=== PATIENT | female | born 1990 | race Caucasian/White ===

== ENCOUNTER 2016-11-01 23:23 | Emergency (ER) | payer MEDICAID ==
[2016-11-01 23:46] VITALS: BP 111/65
== END 2016-11-01 23:50 | disposition left against medical advice (07) ==
LOC: ER 23:23
DX: Z53.9 Procedure and treatment not carried out, unspecified reason (principal); R22.1 Localized swelling, mass and lump, neck

== ENCOUNTER 2016-11-19 11:50 | Emergency (ER) | payer MEDICAID | END 2016-11-19 13:13 | disposition left against medical advice (07) | LOC: ER 11:50 | DX: Z53.21 Procedure and treatment not carried out due to patient leaving prior to being seen by health care provider (principal) ==

== ENCOUNTER 2016-11-26 12:35 | Emergency (ER) | payer MEDICAID ==
[2016-11-26 13:08] VITALS: BP 103/65
--- NOTE | 2016-11-26 13:19 | ER Document Report ---
ED Medical Screen (RME) - General Stated Complaint: FLANK PAIN Time seen by provider: 13:18 Mode of Arrival: Ambulatory Information source: Patient Notes: 26-year-old female complaining of bilateral lumbar back pain that radiates into both sacrum since last Sunday. She was told by her primary care doctor that she has small kidney stones in each kidney. The pain has gotten worse. Fever. Vomited yesterday. On Depo without menses. I have greeted and performed a rapid initial assessment of this patient. A comprehensive ED assessment, evaluation of the patient, analysis of test results , and completion of the medical decision making process will be contacted by additional ED providers. TRAVEL OUTSIDE OF THE [place] IN LAST 30 DAYS: No - Related Data Allergies/Adverse Reactions: strawberry [[place]] Allergy (Severe, Verified 11/26/16 13:38) Anaphylaxis levonorgestrel [From Norplant System] Allergy (Verified 11/26/16 13:38) Hives tramadol Allergy (Verified 11/26/16 13:38) Past Medical History - Past Medical History Cardiac Medical History: Denies: Hx Coronary Artery Disease, Hx Peripheral Vascular Disease Pulmonary Medical History: Denies: Hx Asthma Endocrine Medical History: Reports: Hx Hypothyroidism. Denies: Hx Diabetes Mellitus Type 1, Hx Diabetes Mellitus Type 2 Renal/ Medical History: Denies: Hx Peritoneal Dialysis Musculoskeltal Medical History: Reports Hx Arthritis - bilateral hips, Reports Hx Musculoskeletal Deformity, Reports Hx Musculoskeletal Trauma Psychiatric Medical History: Reports: Hx Anxiety Traumatic Medical History: Reports: Hx Fractures - bilateral hips, Hx Spine Fracture Past Surgical History: Reports: Hx Orthopedic Surgery - bilat hip dysplasia, right femur fx - Immunizations Immunizations up to date: Yes Hx Diphtheria, Pertussis, Tetanus Vaccination: Yes - given today Physical Exam - Vital signs Vitals: Temp Pulse Resp BP Pulse Ox 98.2 F 66 18 103/65 99 11/26/16 13:07 11/26/16 13:07 11/26/16 13:07 11/26/16 13:07 11/26/16 13:07 Course - Vital Signs Vital signs: Temp Pulse Resp BP Pulse Ox 98.2 F 66 18 103/65 99 11/26/16 13:07 11/26/16 13:07 11/26/16 13:07 11/26/16 13:07 11/26/16 13:07
[2016-11-26 14:14] LABS: APPEARANCE,URINE HAZY; BILIRUBIN,URINE NEGATIVE (NEGATIVE); GLUCOSE, URINE NEGATIVE (NEGATIVE); KETONES,URINE NEGATIVE (NEGATIVE); LEUKOCYTE ESTERASE,URINE LARGE (NEGATIVE); NITRITE,URINE NEGATIVE (NEGATIVE); PROTEIN,URINE 30 mg/dL (NEGATIVE); UROBILINOGEN,URINE NEGATIVE mg/dL (<2.0)
[2016-11-26 14:15] LABS: URINE SPECIFIC GRAVITY 1.029
[2016-11-26] MEDS ORDERED: HYDROCODONE/ACETAMINOPHEN 5-325 MG TABLET PO ONE (15:51)
[2016-11-26] MEDS ORDERED: CIPROFLOXACIN HCL 500 MG TABLET PO ONE (15:51)
[2016-11-26] MEDS ORDERED: HYDROCODONE/ACETAMINOPHEN 5-325 MG 6 TAB/DSPK PO PRN (15:54)
--- NOTE | 2016-11-26 15:54 | ER Document Report ---
[id number] of Arrival: Ambulatory Notes: The patient is a 26-year-old female who presents with right flank pain for the past day. She is also having dysuria. She says the pain is constant. Denies nausea, vomiting, fevers, headache, rash or abdominal pain. TRAVEL OUTSIDE OF THE [place] IN LAST 30 DAYS: No - Related Data Allergies/Adverse Reactions: strawberry [[place]] Allergy (Severe, Verified 11/26/16 13:38) Anaphylaxis levonorgestrel [From Norplant System] Allergy (Verified 11/26/16 13:38) Hives tramadol Allergy (Verified 11/26/16 13:38) Past Medical History - General Information source: Patient - Social History Smoking Status: Current Every Day Smoker Chew tobacco use (# tins/day): No Frequency of alcohol use: None Drug Abuse: None Family History: Other - adopted Patient has suicidal ideation: No Patient has homicidal ideation: No - Past Medical History Cardiac Medical History: Denies: Hx Coronary Artery Disease, Hx Peripheral Vascular Disease Pulmonary Medical History: Denies: Hx Asthma Endocrine Medical History: Reports: Hx Hypothyroidism. Denies: Hx Diabetes Mellitus Type 1, Hx Diabetes Mellitus Type 2 Renal/ Medical History: Denies: Hx Peritoneal Dialysis Musculoskeltal Medical History: Reports Hx Arthritis - bilateral hips, Reports Hx Musculoskeletal Deformity, Reports Hx Musculoskeletal Trauma Psychiatric Medical History: Reports: Hx Anxiety Traumatic Medical History: Reports: Hx Fractures - bilateral hips, Hx Spine Fracture Past Surgical History: Reports: Hx Orthopedic Surgery - bilat hip dysplasia, right femur fx - Immunizations Immunizations up to date: Yes Hx Diphtheria, Pertussis, Tetanus Vaccination: Yes - given today Hx Pneumococcal Vaccination: 05/10/13 Review of Systems - Review of Systems Notes: REVIEW OF SYSTEMS: CONSTITUTIONAL: -fevers, -chills EENT: -eye pain, -difficulty swallowing, -nasal congestion CARDIOVASCULAR:-chest pain, -syncope. RESPIRATORY: -cough, -SOB GASTROINTESTINAL: -abdominal pain, -nausea, -vomiting, -diarrhea GENITOURINARY: +dysuria, -hematuria MUSCULOSKELETAL: +right flank pain, -neck pain SKIN: -rash or skin lesions. HEMATOLOGIC: -easy bruising or bleeding. LYMPHATIC: -swollen, enlarged glands. NEUROLOGICAL: -altered mental status or loss of consciousness, -headache, - neurologic symptoms PSYCHIATRIC: -anxiety, -depression. ALL OTHER SYSTEMS REVIEWED AND NEGATIVE. Physical Exam - Vital signs Vitals: Temp Pulse Resp BP Pulse Ox 98.2 F 66 18 103/65 99 11/26/16 13:07 11/26/16 13:07 11/26/16 13:07 11/26/16 13:07 11/26/16 13:07 - Notes Notes: PHYSICAL EXAMINATION: GENERAL: Well-appearing, well-nourished and in no acute distress. HEAD: Atraumatic, normocephalic. EYES: Pupils equal round and reactive to light, extraocular movements intact, sclera anicteric, conjunctiva are normal. ENT: nares patent, oropharynx clear without exudates. Moist mucous membranes. NECK: Normal range of motion, supple without lymphadenopathy LUNGS: Breath sounds clear to auscultation bilaterally and equal. No wheezes rales or rhonchi. HEART: Regular rate and rhythm without murmurs ABDOMEN: Soft, nontender, normoactive bowel sounds. No guarding, no rebound. No masses appreciated. +right CVA tenderness EXTREMITIES: Normal range of motion, no pitting or edema. No cyanosis. NEUROLOGICAL: Cranial nerves grossly intact. Normal speech, normal gait. Normal sensory, motor, and reflex exams. PSYCH: Normal mood, normal affect. SKIN: Warm, Dry, normal turgor, no rashes or lesions noted. Course - Re-evaluation Re-evalutation: Patient has evidence of right pyelonephritis on urine and physical exam. She is tolerating fluids. Will treat her with Cipro as an outpatient and given strict return precautions. - Vital Signs Vital signs: Temp Pulse Resp BP Pulse Ox 98.2 F 66 18 103/65 99 11/26/16 13:07 11/26/16 13:07 11/26/16 13:07 11/26/16 13:07 11/26/16 13:07 - Laboratory Laboratory results interpreted by me: 11/26/16 13:45 Urine Protein 30 H Urine Blood SMALL H Ur Leukocyte Esterase LARGE H Discharge - Discharge Clinical Impression: Pyelonephritis Condition: Good Disposition: HOME, SELF-CARE Additional Instructions: PYELONEPHRITIS: Your evaluation shows evidence of pyelonephritis. This is an infection in the kidney. Typical symptoms are fever, pain in the flank, pain on urination, and frequent urination. Many cases of pyelonephritis can be treated at home. Hospital care may be necessary for patients who are very ill, or elderly or . Pyelonephritis is treated with antibiotics. Be sure to take all the medication as prescribed. Drink plenty of liquids (about three quarts per day) . You may take acetaminophen for fever. You should feel significantly improved within two days. You should have a recheck of your urine in about one week to insure that the infection is gone. Return for a re-examination if your symptoms worsen in any way -- such as high fever, shaking chills, severe weakness or dizziness, severe pain, or inability to pass your urine. ANTIBIOTIC THERAPY: You have been given an antibiotic prescription. It's important that you take all the medication, unless instructed otherwise by your physician. Failure to complete the entire course can result in relapse of your condition. Common side effects of antibiotics include nausea, intestinal cramping, or diarrhea. Women may develop vaginal yeast infections, and babies can get yeast (thrush) in the mouth following the use of antibiotics. Contact your physician if you develop significant side effects from this medication. Allergy to this antibiotic can result in hives, wheezing, faintness, or itching. If symptoms of allergy occur, stop the medication and call the doctor. CIPROFLOXACIN: You have been given an antibacterial agent, ciprofloxacin (Cipro). This medicine is not related to the penicillins, sulfas, cephalosporins, or tetracyclines. It is often given to patients who are allergic to these drugs. It has been chosen for you either because other drugs are not appropriate, or because of the nature of your problem. Cipro should not be taken with antacids, as these can decrease its effectiveness. It can be taken without regard to meals. CIPRO SHOULD NOT BE TAKEN BY CHILDREN, NURSING WOMEN, OR WOMEN. Although Cipro is usually well-tolerated, common side effects can include nausea and diarrhea. Contact your doctor if you experience any unusual symptoms while on this medication, such as joint pain or swelling, shortness of breath, wheezing, faintness, or hives. USE OF ACETAMINOPHEN (Tylenol): Acetaminophen may be taken for pain relief or fever control. It's much safer than aspirin, offering a wider range of "safe" dosages. It is safe during . Some brand names are Tylenol, Panadol, Datril, Anacin 3, Tempra, and Liquiprin. Acetaminophen can be repeated every four hours. The following are maximum recommended dosages: >89 pounds or adults 650 mg to 900 mg Acetaminophen can be repeated every four hours. Maximum dose not to exceed 4000 mg a day. ORAL NARCOTIC MEDICATION: You have been given a prescription for pain control. This medication is a narcotic. It's best taken with food, as nausea can result if taken on an empty stomach. Don't operate machinery or drive within six hours of taking this medication. Do not combine this medicine with alcohol, or with any medication which can cause sedation (such as cold tablets or sleeping pills) unless you get permission from the physician. Narcotics tend to cause constipation. If possible, drink plenty of fluids and eat a diet high in fiber and fruits. Please be aware that prescription narcotics also have the potential for abuse. People become addicted to these medications because of the general sense of wellbeing that they induce. This feeling along with a significant reduction in tension, anxiety, and aggression provides a stimulating seductive quality to these drugs. Once your pain is under control, we encourage you to discard your unused narcotics. FOLLOW-UP CARE: If you have been referred to a physician for follow-up care, call the physician s office for an appointment as you were instructed or within the next two days. If you experience worsening or a significant change in your symptoms, notify the physician immediately or return to the Emergency Department at any time for re-evaluation. Prescriptions: Ciprofloxacin HCl [Cipro 500 mg Tablet] 500 mg PO BID #20 tablet Hydrocodone/Acetaminophen [[place] 5-325 mg Tablet] 1 tab PO Q6H PRN #8 tablet PRN Reason:
== END 2016-11-26 16:13 | disposition home or self-care (01) ==
LOC: ER 12:35
DX: N12 Tubulo-interstitial nephritis, not specified as acute or chronic (principal); R10.9 Unspecified abdominal pain; F17.200 Nicotine dependence, unspecified, uncomplicated; E03.9 Hypothyroidism, unspecified
CPT/HCPCS: 99284; 87086; 81025; 81001; J3490

== ENCOUNTER 2016-12-10 10:55 | Emergency (ER) | payer MEDICAID ==
--- NOTE | 2016-12-10 11:02 | ER Document Report ---
ED Medical Screen (RME) - General Stated Complaint: RIGHT PINKY INJURY Time seen by provider: 10:59 Mode of Arrival: Ambulatory Information source: Patient Notes: 26-year-old female presents to ED with a possible paronychia to the right fifth finger. States she woke up with her finger sore 2 days ago. Denies any injury of any kind. [id number] is red with swelling around the nail. States she 's been on Depo 2 months I have greeted and performed a rapid initial assessment of this patient. A comprehensive ED assessment and evaluation of the patient, analysis of test results and completion of medical decision making process will be conducted by an additional ED providers. TRAVEL OUTSIDE OF THE [place] IN LAST 30 DAYS: No - Related Data Allergies/Adverse Reactions: strawberry [[place]] Allergy (Severe, Verified 11/26/16 13:38) Anaphylaxis levonorgestrel [From Norplant System] Allergy (Verified 11/26/16 13:38) Hives tramadol Allergy (Verified 11/26/16 13:38) Past Medical History - Past Medical History Cardiac Medical History: Denies: Hx Coronary Artery Disease, Hx Peripheral Vascular Disease Pulmonary Medical History: Denies: Hx Asthma Endocrine Medical History: Reports: Hx Hypothyroidism. Denies: Hx Diabetes Mellitus Type 1, Hx Diabetes Mellitus Type 2 Renal/ Medical History: Denies: Hx Peritoneal Dialysis Musculoskeltal Medical History: Reports Hx Arthritis - bilateral hips, Reports Hx Musculoskeletal Deformity, Reports Hx Musculoskeletal Trauma Psychiatric Medical History: Reports: Hx Anxiety Traumatic Medical History: Reports: Hx Fractures - bilateral hips, Hx Spine Fracture Past Surgical History: Reports: Hx Orthopedic Surgery - bilat hip dysplasia, right femur fx - Immunizations Immunizations up to date: Yes Hx Diphtheria, Pertussis, Tetanus Vaccination: Yes - given today
[2016-12-10] MEDS ORDERED: HYDROCODONE/ACETAMINOPHEN 5-325 MG TABLET PO ONE (11:47)
--- NOTE | 2016-12-10 11:54 | ER Document Report ---
ED Extremity Problem, Upper - General Chief Complaint: Hand Pain Stated Complaint: RIGHT PINKY INJURY Mode of Arrival: Ambulatory Information source: Patient Notes: 26-year-old female presents to the emergency department complaining of right fifth fingertip pain, swelling, and redness over the last 2 days. Patient reports bites her nails and reports symptoms appeared to begin after she bit off a part of a hangnail. Denies fever or drainage. TRAVEL OUTSIDE OF THE [place] IN LAST 30 DAYS: No - HPI Patient complains to provider of: Pain, Swelling Recent injury: No Quality of pain: Achy, Throbbing Severity of pain: Moderate Pain Level: 3 Similar symptoms previously: Yes Recently seen / treated by doctor: No - Related Data Allergies/Adverse Reactions: strawberry [[place]] Allergy (Severe, Verified 12/10/16 11:02) Anaphylaxis levonorgestrel [From Norplant System] Allergy (Verified 12/10/16 11:02) Hives Sulfa (Sulfonamide Antibiotics) Allergy (Verified 12/10/16 11:02) tramadol Allergy (Verified 12/10/16 11:02) Past Medical History - General Information source: Patient - Social History Smoking Status: Current Every Day Smoker Chew tobacco use (# tins/day): No Frequency of alcohol use: None Drug Abuse: None Lives with: Family Family History: Other - adopted Patient has suicidal ideation: No Patient has homicidal ideation: No - Past Medical History Cardiac Medical History: Denies: Hx Coronary Artery Disease, Hx Peripheral Vascular Disease Pulmonary Medical History: Denies: Hx Asthma Endocrine Medical History: Reports: Hx Hypothyroidism. Denies: Hx Diabetes Mellitus Type 1, Hx Diabetes Mellitus Type 2 Renal/ Medical History: Denies: Hx Peritoneal Dialysis Musculoskeltal Medical History: Reports Hx Arthritis - bilateral hips, Reports Hx Musculoskeletal Deformity, Reports Hx Musculoskeletal Trauma Psychiatric Medical History: Reports: Hx Anxiety Traumatic Medical History: Reports: Hx Fractures - bilateral hips, Hx Spine Fracture Past Surgical History: Reports: Hx Orthopedic Surgery - bilat hip dysplasia, right femur fx - Immunizations Immunizations up to date: Yes Hx Diphtheria, Pertussis, Tetanus Vaccination: Yes - given today Hx Pneumococcal Vaccination: 05/10/13 Review of Systems - Review of Systems Constitutional: No symptoms reported EENT: No symptoms reported Cardiovascular: No symptoms reported Respiratory: No symptoms reported Gastrointestinal: No symptoms reported Genitourinary: No symptoms reported Female Genitourinary: No symptoms reported Musculoskeletal: See HPI Skin: No symptoms reported Hematologic/Lymphatic: No symptoms reported Neurological/Psychological: No symptoms reported -: Yes All other systems reviewed and negative Physical Exam - Vital signs Vitals: Temp Pulse Resp BP Pulse Ox 98.2 F 74 20 113/66 98 12/10/16 11:01 12/10/16 11:01 12/10/16 11:01 12/10/16 11:01 12/10/16 11:01 Interpretation: Normal - General General appearance: Appears well, Alert In distress: None - HEENT Head: Normocephalic, Atraumatic Eyes: Normal Pupils: PERRL - Respiratory Respiratory status: No respiratory distress Chest status: Nontender Breath sounds: Normal Chest palpation: Normal - Cardiovascular Rhythm: Regular Heart sounds: Normal auscultation Murmur: No Pulses: Normal: Radial Normal capillary refill: Yes - Abdominal Inspection: Normal Distension: No distension Bowel sounds: Normal Tenderness: Nontender Organomegaly: No organomegaly - Extremities General upper extremity: Normal inspection, Nontender, Normal color, Normal ROM , Normal strength, Normal temperature. No: Tender, Edema General lower extremity: Normal inspection, Normal color, Normal ROM, Normal strength, Normal weight bearing Hand: Tender - Tenderness to the distal tip of right fifth finger. Mild localized swelling and erythema without fluctuance or suggestion of abscess at this time. Nail intact. motor and neurovascular function intact.. No: Nail injury - Neurological Neuro grossly intact: Yes Cognition: Normal Orientation: AAOx4 [place] Coma Scale Eye Opening: Spontaneous [place] Coma Scale Verbal: Oriented [place] Coma Scale Motor: Obeys Commands [place] Coma Scale Total: 15 Speech: Normal Motor strength normal: LUE, RUE, LLE, RLE Sensory: Normal - Psychological Associated symptoms: Normal affect, Normal mood - Skin Skin Temperature: Warm Skin Moisture: Dry Skin Color: Normal Course - Re-evaluation Re-evalutation: 12/10/16 12:10 Patient hemodynamically stable, in no distress, afebrile. Physical exam findings suggestive of uncomplicated paronychia with no abscess, felon, or other indication for I&D at this time. Will prescribe course of cephalexin and discussed at length home care including warm soaks and elevation. Patient appears stable for discharge and agrees with home care, follow-up with PCP, and ED return precautions. - Vital Signs Vital signs: Temp Pulse Resp BP Pulse Ox 98.7 F 85 16 115/51 L 99 12/10/16 12:07 12/10/16 12:07 12/10/16 12:07 12/10/16 12:07 12/10/16 12:07 Discharge - Discharge Clinical Impression: Paronychia Qualifiers: Laterality: right Qualified Code(s): L03.011 - Cellulitis of right finger Condition: Stable Disposition: HOME, SELF-CARE Instructions: Paronychia ([facility]), Elevation & Warmth ([facility]), Acetaminophen, Anti- Inflammatory Medication ([facility]), Cephalexin ([facility]), Antibiotic Therapy ([facility]) Additional Instructions: Home Self-Care: -Stop biting nails -Elevation -Warm water soaks twice daily 5-10 mins x 5-7 days -Use Half-strength hydrogen peroxide OR Dilute povidone solution 1 tsp/gallon water -Keep area clean and dry Follow-up with your primary care provider in 1-2 days. Return to the Emergency Department for any worsening symptoms or concerns. Prescriptions: Cephalexin Monohydrate [Keflex 500 mg Capsule] 500 mg PO Q6H 7 Days Naproxen [Naprosyn 375 Mg Tablet] 375 mg PO BIDP PRN #10 tablet PRN Reason: Referrals: PEPE ANN MD [Primary Care Provider] - Follow up tomorrow
[2016-12-10 12:09] VITALS: BP 115/51
== END 2016-12-10 12:32 | disposition home or self-care (01) ==
LOC: ER 10:55
DX: L03.011 Cellulitis of right finger (principal); M79.641 Pain in right hand; F17.200 Nicotine dependence, unspecified, uncomplicated; E03.9 Hypothyroidism, unspecified; Z88.2 Allergy status to sulfonamides; Z91.018 Allergy to other foods
CPT/HCPCS: 99283

== ENCOUNTER 2017-01-10 11:49 | Emergency (ER) | payer MEDICAID ==
--- NOTE | 2017-01-10 11:58 | ER Document Report ---
ED Medical Screen (RME) - General TRAVEL OUTSIDE OF THE [place] IN LAST 30 DAYS: No - General Stated Complaint: TOOTH PAIN Notes: 26 yo female c/o dental pain. had left upper tooth pulled today. dentist would not give pain med Dr Mccarty. no bleeding from extraction site (GUILLERMO PEREZ) - Related Data Allergies/Adverse Reactions: strawberry [[place]] Allergy (Severe, Verified 01/10/17 11:55) Anaphylaxis levonorgestrel [From Norplant System] Allergy (Verified 01/10/17 11:55) Hives Sulfa (Sulfonamide Antibiotics) Allergy (Verified 01/10/17 11:55) tramadol Allergy (Verified 01/10/17 11:55) Past Medical History - Past Medical History Cardiac Medical History: Denies: Hx Coronary Artery Disease, Hx Peripheral Vascular Disease Pulmonary Medical History: Denies: Hx Asthma Endocrine Medical History: Reports: Hx Hypothyroidism. Denies: Hx Diabetes Mellitus Type 1, Hx Diabetes Mellitus Type 2 Renal/ Medical History: Denies: Hx Peritoneal Dialysis Musculoskeltal Medical History: Reports Hx Arthritis - bilateral hips, Reports Hx Musculoskeletal Deformity, Reports Hx Musculoskeletal Trauma Psychiatric Medical History: Reports: Hx Anxiety Traumatic Medical History: Reports: Hx Fractures - bilateral hips, Hx Spine Fracture Past Surgical History: Reports: Hx Orthopedic Surgery - bilat hip dysplasia, right femur fx - Immunizations Immunizations up to date: Yes Hx Diphtheria, Pertussis, Tetanus Vaccination: Yes - given today Doctor's Discharge - Discharge Clinical Impression: dental extraction pain Condition: Good Disposition: HOME, SELF-CARE Additional Instructions: You were seen today for pain in the site of her recent dental extraction. He states you have smoked since the extraction which is probably removed the clot from the nerve and of left the nerve exposed. Please keep the [address] over the dental extraction site to reform the clot. You will be given a 6 pack of you can take one every 6 hours for pain I cannot give you any more narcotics than this so please make them last until you can get back to the dentist and get more pain medicine. The other option is to follow-up with your primary doctor to get pain medicine. Acetaminophen Acetaminophen may be taken for pain relief or fever control. It's much safer than aspirin, offering a wider range of "safe" dosages. It is safe during . Some brand names are Tylenol, Panadol, Datril, Anacin 3, Tempra, and Liquiprin. Acetaminophen can be repeated every four hours. The following are maximum recommended dosages: WEIGHT Dose Drops Elixir Chewable( 80mg) (LBS.) drprs=droppers tsp=teaspoon 6 40 mg .4 ml (1/2) 6-11 80 mg .8 ml (full) 1/2 tsp 1 tab 12-16 120 mg 1 1/2 drprs 3/4 tsp 1 1/2 tabs 17-23 160 mg 2 drprs 1 tsp 2 tabs 24-30 240 mg 3 drprs 1 1/2 tsp 3 tabs 30-35 320 mg 2 tsp 4 tabs 36-41 360 mg 2 1/4 tsp 4 1 /2 tabs 42-47 400 mg 2 1/2 tsp 5 tabs 48-53 480 mg 3 tsp 6 tabs 54-59 520 mg 3 1/4 tsp 6 1 /2 tabs 60-64 560 mg 3 1/2 tsp 7 tabs 65-70 600 mg 3 3/4 tsp 7 1 /2 tabs 71-76 640 mg 4 tsp 8 tabs 77-82 720 mg 4 1/2 tsp 9 tabs 83-88 800 mg 5 tsp 10 tabs >89 pounds or adults 650 mg to 900 mg Acetaminophen can be repeated every four hours. Maximum daily dose not to exceed 4000 mg. These maximum recommended dosages are slightly higher than the dosages written on the product container, but these dosages are very safe and well below the toxic dosage for acetaminophen. Chronic Pain Control Stress, inactivity, and depression make pain more severe regardless of the cause of the pain. Stress and poor physical condition can cause pain such as headaches and backache. Relaxation: Rest in a quiet place with your eyes closed for 20 minutes twice daily. Concentrate on a pleasant image, or simply "feel" your breathing. Clear your mind. Stress management: Deal with your "stressors." Either take action, or eliminate the stressor from your life. Don't let things hang over you. Accept those things you can't change. Nutrition: Eat small, balanced meals -- don't skip, don't overeat. Meals should be high-carbohydrate, low-sugar, low-fat. Exercise: Exercise helps painful conditions and eases stress. Get 30 minutes of moderate exercise, five days a week. Do an activity that does not flare your pain. Precautions: Pain which continues to disrupt daily activities, or which changes in nature, requires a medical evaluation. Pain Clinic referral is available. We do not manage chronic pain in the Emergency Department. We will try to appropriately help you through an acute flare of your chronic painful condition , but for on-going chronic pain that does not improve, you will need to see your private doctor or [facility]. We do not provide repeated medication management of chronic painful conditions. If you wish, we can provide the name of local pain management physicians. FOLLOW-UP CARE: If you have been referred to a physician for follow-up care, call the physician s office for an appointment as you were instructed or within the next two days. If you experience worsening or a significant change in your symptoms, notify the physician immediately or return to the Emergency Department at any time for re-evaluation. Forms: Smoking Cessation Education
[2017-01-10] MEDS ORDERED: HYDROCODONE/ACETAMINOPHEN 5-325 MG 6 TAB/DSPK PO PRN (13:47)
--- NOTE | 2017-01-10 13:51 | ER Document Report ---
ED Oral Problem - General Chief Complaint: Toothache Stated Complaint: TOOTH PAIN Time seen by provider: 13:45 Mode of Arrival: Ambulatory Information source: Patient Notes: 26-year-old female presents to ED for a dental pain in the where the left upper tooth was pulled. Patient states that the dentist would not give her any pain medication. She states she smoked one cigarette after that it dental removal and now she is having pain through her jaw up to her ear. She is having very minimal bleeding from the site a told her to please press a 2 x 2 into the area to reform the blood clot over the root. TRAVEL OUTSIDE OF THE [place] IN LAST 30 DAYS: No - HPI Patient complains to provider of: Toothache Onset: This morning Onset: Gradual Quality of pain: Sharp, Throbbing Severity: Moderate Pain Level: 4 Context: Recent dental extractions Associated symptoms: Other - Pain at the site of dental extraction Worsened by: Cold Similar symptoms previously: Yes Recently seen / treated by doctor/dentist: Yes - Related Data Allergies/Adverse Reactions: strawberry [[place]] Allergy (Severe, Verified 01/10/17 11:55) Anaphylaxis levonorgestrel [From Norplant System] Allergy (Verified 01/10/17 11:55) Hives Sulfa (Sulfonamide Antibiotics) Allergy (Verified 01/10/17 11:55) tramadol Allergy (Verified 01/10/17 11:55) Past Medical History - General Information source: Patient - Social History Smoking Status: Current Every Day Smoker Cigarette use (# per day): Yes - half pack a day Chew tobacco use (# tins/day): No Smoking Education Provided: Yes Frequency of alcohol use: None Drug Abuse: None Occupation: no Lives with: Friend Family History: Other - adopted Patient has suicidal ideation: No Patient has homicidal ideation: No - Past Medical History Cardiac Medical History: Reports: None Pulmonary Medical History: Reports: None EENT Medical History: Reports: None Neurological Medical History: Reports: None Endocrine Medical History: Reports: Hx Hypothyroidism Renal/ Medical History: Reports: None Malignancy Medical History: Reports: None GI Medical History: Reports: None Musculoskeltal Medical History: Reports Hx Arthritis - bilateral hips, Reports Hx Musculoskeletal Deformity, Reports Hx Musculoskeletal Trauma Skin Medical History: Reports None Psychiatric Medical History: Reports: Hx Anxiety Traumatic Medical History: Reports: Hx Fractures - bilateral hips Infectious Medical History: Reports: None Past Surgical History: Reports: Hx Orthopedic Surgery - bilat hip dysplasia, right femur fx - Immunizations Immunizations up to date: Yes Hx Diphtheria, Pertussis, Tetanus Vaccination: Yes - given today Hx Pneumococcal Vaccination: 05/10/13 Review of Systems - Review of Systems Constitutional: No symptoms reported EENT: Dental problem - Pain at the site of recent dental extraction Cardiovascular: No symptoms reported Respiratory: No symptoms reported Gastrointestinal: No symptoms reported Genitourinary: No symptoms reported Female Genitourinary: No symptoms reported Musculoskeletal: No symptoms reported Skin: No symptoms reported Hematologic/Lymphatic: No symptoms reported Neurological/Psychological: No symptoms reported Physical Exam - Vital signs Vitals: Temp Pulse Resp BP Pulse Ox 98.9 F 57 L 16 113/75 100 01/10/17 11:54 01/10/17 11:54 01/10/17 11:54 01/10/17 11:54 01/10/17 11:54 Interpretation: Normal - General General appearance: Appears well, Alert - HEENT Head: Normocephalic, Atraumatic Eyes: Normal Pupils: PERRL Ears: Normal External canal: Normal Tympanic membrane: Normal Sinus: Normal Nasal: Normal Mouth/Lips: Normal Teeth diagram: 1 - Pain is site of left dental extraction it was pulled today Pharynx: Normal Neck: Normal - Respiratory Respiratory status: No respiratory distress Chest status: Nontender Breath sounds: Normal Chest palpation: Normal - Cardiovascular Rhythm: Regular Heart sounds: Normal auscultation Murmur: No - Abdominal Inspection: Normal Distension: No distension Bowel sounds: Normal Tenderness: Nontender Organomegaly: No organomegaly - Back Back: Normal, Nontender - Extremities General upper extremity: Normal inspection, Nontender, Normal color, Normal ROM , Normal temperature General lower extremity: Normal inspection, Nontender, Normal color, Normal ROM , Normal temperature, Normal weight bearing. No: Jose's sign - Neurological Neuro grossly intact: Yes Cognition: Normal Orientation: AAOx4 Mangum Coma Scale Eye Opening: Spontaneous Paula Coma Scale Verbal: Oriented Paula Coma Scale Motor: Obeys Commands Mangum Coma Scale Total: 15 Speech: Normal Motor strength normal: LUE, RUE, LLE, RLE Sensory: Normal - Psychological Associated symptoms: Normal affect, Normal mood - Skin Skin Temperature: Warm Skin Moisture: Dry Skin Color: Normal Course - Vital Signs Vital signs: Temp Pulse Resp BP Pulse Ox 98.9 F 57 L 16 113/75 100 01/10/17 11:54 01/10/17 11:54 01/10/17 11:54 01/10/17 11:54 01/10/17 11:54 Discharge - Discharge Clinical Impression: dental extraction pain Condition: Good Disposition: HOME, SELF-CARE Additional Instructions: You were seen today for pain in the site of her recent dental extraction. He states you have smoked since the extraction which is probably removed the clot from the nerve and of left the nerve exposed. Please keep the [address] over the dental extraction site to reform the clot. You will be given a 6 pack of you can take one every 6 hours for pain I cannot give you any more narcotics than this so please make them last until you can get back to the dentist and get more pain medicine. The other option is to follow-up with your primary doctor to get pain medicine. Acetaminophen Acetaminophen may be taken for pain relief or fever control. It's much safer than aspirin, offering a wider range of "safe" dosages. It is safe during . Some brand names are Tylenol, Panadol, Datril, Anacin 3, Tempra, and Liquiprin. Acetaminophen can be repeated every four hours. The following are maximum recommended dosages: WEIGHT Dose Drops Elixir Chewable( 80mg) (LBS.) drprs=droppers tsp=teaspoon 6 40 mg .4 ml (1/2) 6-11 80 mg .8 ml (full) 1/2 tsp 1 tab 12-16 120 mg 1 1/2 drprs 3/4 tsp 1 1/2 tabs 17-23 160 mg 2 drprs 1 tsp 2 tabs 24-30 240 mg 3 drprs 1 1/2 tsp 3 tabs 30-35 320 mg 2 tsp 4 tabs 36-41 360 mg 2 1/4 tsp 4 1 /2 tabs 42-47 400 mg 2 1/2 tsp 5 tabs 48-53 480 mg 3 tsp 6 tabs 54-59 520 mg 3 1/4 tsp 6 1 /2 tabs 60-64 560 mg 3 1/2 tsp 7 tabs 65-70 600 mg 3 3/4 tsp 7 1 /2 tabs 71-76 640 mg 4 tsp 8 tabs 77-82 720 mg 4 1/2 tsp 9 tabs 83-88 800 mg 5 tsp 10 tabs >89 pounds or adults 650 mg to 900 mg Acetaminophen can be repeated every four hours. Maximum daily dose not to exceed 4000 mg. These maximum recommended dosages are slightly higher than the dosages written on the product container, but these dosages are very safe and well below the toxic dosage for acetaminophen. Chronic Pain Control Stress, inactivity, and depression make pain more severe regardless of the cause of the pain. Stress and poor physical condition can cause pain such as headaches and backache. Relaxation: Rest in a quiet place with your eyes closed for 20 minutes twice daily. Concentrate on a pleasant image, or simply "feel" your breathing. Clear your mind. Stress management: Deal with your "stressors." Either take action, or eliminate the stressor from your life. Don't let things hang over you. Accept those things you can't change. Nutrition: Eat small, balanced meals -- don't skip, don't overeat. Meals should be high-carbohydrate, low-sugar, low-fat. Exercise: Exercise helps painful conditions and eases stress. Get 30 minutes of moderate exercise, five days a week. Do an activity that does not flare your pain. Precautions: Pain which continues to disrupt daily activities, or which changes in nature, requires a medical evaluation. Pain Clinic referral is available. We do not manage chronic pain in the Emergency Department. We will try to appropriately help you through an acute flare of your chronic painful condition , but for on-going chronic pain that does not improve, you will need to see your private doctor or painter supervisor. We do not provide repeated medication management of chronic painful conditions. If you wish, we can provide the name of local pain management physicians. FOLLOW-UP CARE: If you have been referred to a physician for follow-up care, call the physician s office for an appointment as you were instructed or within the next two days. If you experience worsening or a significant change in your symptoms, notify the physician immediately or return to the Emergency Department at any time for re-evaluation. Forms: Smoking Cessation Education
[2017-01-10 13:52] VITALS: BP 113/75
== END 2017-01-10 14:00 | disposition home or self-care (01) ==
LOC: ER 11:49
DX: K08.89 Other specified disorders of teeth and supporting structures (principal); F17.210 Nicotine dependence, cigarettes, uncomplicated
CPT/HCPCS: 99282

== ENCOUNTER 2017-03-14 10:29 | Emergency (ER) | payer MEDICAID ==
[2017-03-14 10:36] VITALS: BP 112/73
--- NOTE | 2017-03-14 11:14 | ER Document Report ---
ED Extremity Problem, Lower - General Chief Complaint: Skin Problem Stated Complaint: POSSIBLE ALLERGIC REACTION Time Seen by Provider: 03/14/17 10:43 Mode of Arrival: Ambulatory - She is with crutches Information source: Patient Notes: 26-year-old female presents to ED for a reaction to the surgical dressing from a hip replacement surgery. She states she called her orthopedic surgeon and they told her to come to the emergency room and have the dressing changed. TRAVEL OUTSIDE OF THE [place] IN LAST 30 DAYS: No - HPI Patient complains to provider of: Other - itching to surgical site where dressing reacted to skin Location: Thigh Occurred: Last week Where: Other - surgical site Onset/Duration: Gradual Quality of pain: Other - itching not pain to this site but has pain to surgical site from hip replacement Severity: Severe Pain Level: 5 Context: Other - red rash to right hip and thigh Recent injury: No Associated symptoms: Painful ambulation Exacerbated by: Movement, Walking Relieved by: Nothing - Related Data Allergies/Adverse Reactions: strawberry [[place]] Allergy (Severe, Verified 01/10/17 11:55) Anaphylaxis levonorgestrel [From Norplant System] Allergy (Verified 01/10/17 11:55) Hives Sulfa (Sulfonamide Antibiotics) Allergy (Verified 01/10/17 11:55) tramadol Allergy (Verified 01/10/17 11:55) Past Medical History - General Information source: Patient - Social History Smoking Status: Current Every Day Smoker Cigarette use (# per day): Yes - Half pack a day Chew tobacco use (# tins/day): No Smoking Education Provided: Yes - Less than 2 minutes Frequency of alcohol use: None Drug Abuse: None Lives with: Spouse/Significant other Family History: Other - adopted Patient has suicidal ideation: No Patient has homicidal ideation: No - Past Medical History Cardiac Medical History: Reports: None Pulmonary Medical History: Reports: None EENT Medical History: Reports: None Neurological Medical History: Reports: None Endocrine Medical History: Reports: Hx Hypothyroidism Renal/ Medical History: Reports: None Malignancy Medical History: Reports: None GI Medical History: Reports: None Musculoskeltal Medical History: Reports Hx Arthritis - bilateral hips, Reports Hx Musculoskeletal Deformity - Hip dysplasia at , Reports Hx Musculoskeletal Trauma - Fractured right femur Skin Medical History: Reports None Psychiatric Medical History: Reports: Hx Anxiety Traumatic Medical History: Reports: Hx Fractures - bilateral hips, Hx Spine Fracture Infectious Medical History: Reports: None Past Surgical History: Reports: Hx Orthopedic Surgery - bilat hip dysplasia, right femur fx 4 surgeries on right 3 surgeries on lef - Immunizations Immunizations up to date: Yes Hx Diphtheria, Pertussis, Tetanus Vaccination: Yes - given today Hx Pneumococcal Vaccination: 05/10/13 Review of Systems - Review of Systems Constitutional: No symptoms reported EENT: No symptoms reported Cardiovascular: No symptoms reported Respiratory: No symptoms reported Gastrointestinal: No symptoms reported Genitourinary: No symptoms reported Female Genitourinary: No symptoms reported Musculoskeletal: No symptoms reported Skin: Rash - Mid back and right hip under dressing Hematologic/Lymphatic: No symptoms reported Neurological/Psychological: No symptoms reported Physical Exam - Vital signs Vitals: Temp Pulse Resp BP Pulse Ox 98.1 F 64 18 112/73 100 03/14/17 10:34 03/14/17 10:34 03/14/17 10:34 03/14/17 10:34 03/14/17 10:34 Interpretation: Normal - General General appearance: Appears well, Alert - HEENT Head: Normocephalic, Atraumatic Eyes: Normal Pupils: PERRL - Respiratory Respiratory status: No respiratory distress Chest status: Nontender Breath sounds: Normal Chest palpation: Normal - Cardiovascular Rhythm: Regular Heart sounds: Normal auscultation Murmur: No - Abdominal Inspection: Normal Distension: No distension Bowel sounds: Normal Tenderness: Nontender Organomegaly: No organomegaly - Back Back: Normal, Nontender - Extremities General upper extremity: Normal inspection, Nontender, Normal color, Normal ROM , Normal temperature General lower extremity: Normal inspection, Nontender, Normal color, Normal ROM , Normal temperature, Normal weight bearing. No: Jose's sign - Neurological Neuro grossly intact: Yes Cognition: Normal Orientation: AAOx4 Sherrill Coma Scale Eye Opening: Spontaneous Paula Coma Scale Verbal: Oriented Sherrill Coma Scale Motor: Obeys Commands Sherrill Coma Scale Total: 15 Speech: Normal Motor strength normal: LUE, RUE, LLE, RLE Sensory: Normal - Psychological Associated symptoms: Normal affect, Normal mood - Skin Skin Temperature: Warm Skin Moisture: Dry Skin Color: Normal Skin irregularity: Rash - Plan red rash to back appears to be a heat rash or a contact dermatitis. The rash to the right hip is allergic reaction to the dressing from surgery. Course - Re-evaluation Re-evalutation: 03/14/17 11:51 Surgical dressing removed site cleaned well with surgical scrub and saline Telfa dressing covered by ABD pad and tape. Patient to follow-up with surgeon on Sunday as scheduled. Patient recommended to take Benadryl for her rash. - Vital Signs Vital signs: Temp Pulse Resp BP Pulse Ox 98.1 F 64 18 112/73 100 03/14/17 10:34 03/14/17 10:34 03/14/17 10:34 03/14/17 10:34 03/14/17 10:34 Discharge - Discharge Clinical Impression: Skin reaction to surgical dressing, Allergic rash to back Condition: Stable Disposition: HOME, SELF-CARE Additional Instructions: Is seen today for a skin reaction to your surgical dressing on your right hip. The dressing was removed the area was cleaned with surgical scrub and saline. Dressings were applied covered by an ABD pad and nonallergic tape You will need to take Benadryl for the itching and follow-up with your orthopedic surgeon on Sunday as scheduled Did not change the dressing again until you are seen by the orthopedic surgeon on Sunday reinforced the tape if necessary try not to get the dressing wet. USE OF DIPHENHYDRAMINE: The use of diphenhydramine (Benadryl) has been recommended to control allergic symptoms. The 25 mg strength is available over- the-counter, as well as the elixir. This antihistamine is used for many symptoms. It's useful for itching, watering eyes and nose, allergic swelling, hives, and insect stings. The medication can be repeated four times daily. Age Elixir (12.5 mg/tsp) 25 mg pill 2-3 yr 1/2 tsp 4-8 yr 1 tsp 9-14 yr 2 tsp one tab adult 1-2 tabs Antihistamines may cause drowsiness, especially with the first dose. Do not operate machinery or drive while under the effects of the medication. Do not combine the medication with alcohol, or with any other medication without talking to your doctor. FOLLOW-UP CARE: If you have been referred to a physician for follow-up care, call the physician s office for an appointment as you were instructed or within the next two days. If you experience worsening or a significant change in your symptoms, notify the physician immediately or return to the Emergency Department at any time for re-evaluation. Forms: Smoking Cessation Education Referrals: LAURA HALEY MD [Primary Care Provider] - Follow up as needed
== END 2017-03-14 11:24 | disposition home or self-care (01) ==
LOC: ER 10:29
DX: L23.3 Allergic contact dermatitis due to drugs in contact with skin (principal); T50.995A Adverse effect of other drugs, medicaments and biological substances, initial encounter; F17.210 Nicotine dependence, cigarettes, uncomplicated; Z71.6 Tobacco abuse counseling; Z88.8 Allergy status to other drugs, medicaments and biological substances; Z87.892 Personal history of anaphylaxis; Z91.018 Allergy to other foods; Z88.2 Allergy status to sulfonamides
CPT/HCPCS: 99283

== ENCOUNTER 2017-04-24 19:06 | Emergency (ER) | payer MEDICAID ==
--- NOTE | 2017-04-24 19:56 | ER Document Report ---
HPI - HPI Patient complains to provider of: eyelid problem Onset: Yesterday Onset/Duration: Worse Quality of pain: Burning Pain Level: 4 Context: Pt states that she was doing a lot of crying 2 days ago and started to have some eye irritation. Patient states that she had crying about 9 hours as she had had her right hip dislocate and then she had to get it manipulated back into position. Patient states that she was frequently rubbing her eyes due to crying. Patient states yesterday she noticed that her eyelids started to become tender, red and swollen. Patient denies any contact lens use or glasses. Patient states that her vision is only slightly blurred but she attributes this to the swelling of her eyelids. Reports skin rash to her upper extremities but attributes this to possible tape exposure from recent IV sites. Associated Symptoms: Other - eyelid swelling Exacerbated by: Denies Relieved by: Denies Similar symptoms previously: No Recently seen / treated by doctor: Yes - ROS ROS below otherwise negative: Yes Systems Reviewed and Negative: Yes All other systems reviewed and negative - CONSTITUTIONAL Constitutional: DENIES: Fever - EENT EENT: REPORTS: Eye problems - REPRODUCTIVE Reproductive: DENIES: : - DERM Skin Color: Normal Skin Problems: Rash Past Medical History - General Information source: Patient - Social History Smoking Status: Current Every Day Smoker Frequency of alcohol use: None Drug Abuse: None Occupation: none Lives with: Family Family History: Reviewed & Not Pertinent, Other - adopted Patient has suicidal ideation: No Patient has homicidal ideation: No - Past Medical History Cardiac Medical History: Reports: Other - tachycardia Denies: Hx Coronary Artery Disease, Hx Peripheral Vascular Disease Pulmonary Medical History: Denies: Hx Asthma Endocrine Medical History: Reports: Hx Hypothyroidism. Denies: Hx Diabetes Mellitus Type 1, Hx Diabetes Mellitus Type 2 Renal/ Medical History: Denies: Hx Peritoneal Dialysis Musculoskeltal Medical History: Reports Hx Arthritis - bilateral hips, Reports Hx Musculoskeletal Deformity - Hip dysplasia at , Reports Hx Musculoskeletal Trauma - Fractured right femur Psychiatric Medical History: Reports: Hx Anxiety Traumatic Medical History: Reports: Hx Fractures - bilateral hips, Hx Spine Fracture Past Surgical History: Reports: Hx Orthopedic Surgery - bilat hip dysplasia, right femur fx 4 surgeries on right 3 surgeries on lef - Immunizations Immunizations up to date: Yes Hx Diphtheria, Pertussis, Tetanus Vaccination: Yes - given today Hx Pneumococcal Vaccination: 05/10/13 Vertical Provider Document - CONSTITUTIONAL Agree With Documented VS: Yes Exam Limitations: No Limitations General Appearance: WD/WN, No Apparent Distress - INFECTION CONTROL TRAVEL OUTSIDE OF THE [place] IN LAST 30 DAYS: No - HEENT HEENT: Atraumatic, Normocephalic, PERRLA Notes: No corneal abrasion, ulcer, foreign body, or dendrite. Conjunctivae clear bilaterally, extraocular movements intact - NECK Neck: Normal Inspection, Supple - RESPIRATORY Respiratory: Breath Sounds Normal, No Respiratory Distress O2 Sat by Pulse Oximetry: 97 - CARDIOVASCULAR Cardiovascular: Regular Rate, Regular Rhythm - MUSCULOSKELETAL/EXTREMETIES Musculoskeletal/Extremeties: MAEW - NEURO Level of Consciousness: Awake, Alert, Appropriate Motor/Sensory: No Motor Deficit - DERM Integumentary: Warm, Dry, Rash - pt with maculopapular rash periorbital area bilaterally, and in patches to left extremity and right hip Course - Vital Signs Vital signs: Temp Pulse Resp BP Pulse Ox 98.4 F 18 109/73 97 04/24/17 19:19 04/24/17 19:19 04/24/17 19:19 04/24/17 19:19 Discharge - Discharge Clinical Impression: Dermatitis, Periorbital swelling Condition: Stable Disposition: HOME, SELF-CARE Instructions: Antibiotic Therapy ([facility]), Corticosteroid Medication ([facility]), Steroid Medication, Use of Diphenhydramine Additional Instructions: Return immediately for any new or worsening symptoms Followup with your primary care provider, call tomorrow to make a followup appointment Follow-up with solar energy advisor for any continued problems Take Benadryl [id number] to help with itching to skin rash Instill 1 inch ribbon of erythromycin ointment to bilateral eyes every 6 hours for the next 5 days. Prescriptions: RX: Cephalexin Monohydrate [Keflex 500 mg Capsule] 500 mg PO Q6H 5 Days RX: Prednisone [Deltasone 20 mg Tablet] 3 tab PO DAILY 4 Days Referrals: PEPE ANN MD [Primary Care Provider] - Follow up tomorrow GERRY HAN MD [ACTIVE STAFF] - Follow up as needed
[2017-04-24] MEDS ORDERED: ERYTHROMYCIN 0.5% OPH OINTMENT 3.5 GM (ER DISP) OU PRN (20:57)
[2017-04-24] MEDS ORDERED: PREDNISONE 20 MG TABLET PO ONE (20:57)
[2017-04-24] MEDS ORDERED: CEPHALEXIN 500 MG CAPSULE PO ONE (20:57)
[2017-04-24] MEDS ORDERED: DIPHENHYDRAMINE HCL 50 MG CAPSULE PO ONE (21:00)
[2017-04-24 21:26] VITALS: BP 106/71
== END 2017-04-24 21:24 | disposition home or self-care (01) ==
LOC: ER 19:06
DX: L30.9 Dermatitis, unspecified (principal); R60.9 Edema, unspecified; F17.200 Nicotine dependence, unspecified, uncomplicated; R00.0 Tachycardia, unspecified; E03.9 Hypothyroidism, unspecified
CPT/HCPCS: 99283; J3490; J7512

== ENCOUNTER 2017-06-20 11:58 | Emergency (ER) | payer SELFPAY ==
[2017-06-20 12:06] VITALS: BP 102/60
[2017-06-20] MEDS ORDERED: DIPHENHYDRAMINE HCL 25 MG CAPSULE PO ONE (12:37)
[2017-06-20] MEDS ORDERED: PREDNISONE 20 MG TABLET PO ONE (12:41)
[2017-06-20] MEDS ORDERED: FAMOTIDINE 20 MG TABLET PO ONE (12:41)
[2017-06-20] MEDS ORDERED: ERYTHROMYCIN 0.5% OPH OINTMENT 3.5 GM (ER DISP) OD SCH ×2 (12:43→14:00)
--- NOTE | 2017-06-20 12:43 | ER Document Report ---
ED Eye Complaint - General Chief Complaint: Redness of Eye Stated Complaint: POSSIBLE ALLERGIC REACTION Time Seen by Provider: 06/20/17 12:25 Mode of Arrival: Ambulatory Information source: Patient Notes: 27-year-old female presents to ED for rash and swelling 3 days to her face around both eyes. She states she used a muscular about 3 days ago and she had similar reaction last time she used the mascara in April. So she threw the muscular away but the rash is not getting better yet. She states it is making her have some blurry vision. She states last time she broke her legs that she thought it was from crying but this time she has not been crying but she did use the same mascara a second time. TRAVEL OUTSIDE OF THE [place] IN LAST 30 DAYS: No - HPI Onset: Other - 3 days Eye location: Bilateral Injury: No Quality of pain: Other - Severe itching to around the eyes the eye is a little blurry but is not having pain. There is no redness to the conjunctivae. Associated symptoms: Itching - Related Data Allergies/Adverse Reactions: strawberry [[place]] Allergy (Severe, Verified 06/20/17 12:06) Anaphylaxis levonorgestrel [From Norplant System] Allergy (Verified 06/20/17 12:06) Hives Sulfa (Sulfonamide Antibiotics) Allergy (Verified 06/20/17 12:06) tramadol Allergy (Verified 06/20/17 12:06) Past Medical History - General Information source: Patient - Social History Smoking Status: Current Every Day Smoker Cigarette use (# per day): Yes - Half a pack a day Chew tobacco use (# tins/day): No Smoking Education Provided: Yes - Less than 2 minutes Frequency of alcohol use: None Drug Abuse: None Lives with: Family Family History: Reviewed & Not Pertinent, Other - adopted Patient has suicidal ideation: No Patient has homicidal ideation: No - Past Medical History Cardiac Medical History: Reports: None Pulmonary Medical History: Reports: None EENT Medical History: Reports: None Neurological Medical History: Reports: None Endocrine Medical History: Reports: Hx Hypothyroidism Renal/ Medical History: Reports: None Malignancy Medical History: Reports: None GI Medical History: Reports: None Musculoskeltal Medical History: Reports Hx Arthritis - bilateral hips, Reports Hx Musculoskeletal Deformity - Hip dysplasia at , Reports Hx Musculoskeletal Trauma - Fractured right femur Skin Medical History: Reports None Psychiatric Medical History: Reports: Hx Anxiety Traumatic Medical History: Reports: Hx Fractures Infectious Medical History: Reports: None Past Surgical History: Reports: Hx Orthopedic Surgery - bilat hip dysplasia, right femur fx 5 surgeries, right 4 surgeries on left - Immunizations Immunizations up to date: Yes Hx Diphtheria, Pertussis, Tetanus Vaccination: Yes - given today Hx Pneumococcal Vaccination: 05/10/13 Review of Systems - Review of Systems Constitutional: No symptoms reported EENT: Eye pain - Itching around the eyes and in the eye. There is some blurry vision. No redness or irritation to the conjunctivae or pain to the cornea, Blurred vision Cardiovascular: No symptoms reported Respiratory: No symptoms reported Gastrointestinal: No symptoms reported Genitourinary: No symptoms reported Female Genitourinary: No symptoms reported Musculoskeletal: No symptoms reported Skin: Rash - Bilateral arms and around both eyes and to the back Hematologic/Lymphatic: No symptoms reported Neurological/Psychological: No symptoms reported -: Yes All other systems reviewed and negative Physical Exam - Vital signs Vitals: Temp Pulse Resp BP Pulse Ox 97.5 F 59 L 18 102/60 98 06/20/17 12:05 06/20/17 12:05 06/20/17 12:05 06/20/17 12:05 06/20/17 12:05 Interpretation: Normal - General General appearance: Appears well, Alert - HEENT Head: Normocephalic, Atraumatic Eyes: Normal Pupils: PERRL Fundascopic: Normal Visual daugherty normal: Yes Ears: Normal External canal: Normal Tympanic membrane: Normal Sinus: Normal Nasal: Normal Mouth/Lips: Normal Mucous membranes: Normal Pharynx: Normal Neck: Normal - Respiratory Respiratory status: No respiratory distress Chest status: Nontender Breath sounds: Normal Chest palpation: Normal - Cardiovascular Rhythm: Regular Heart sounds: Normal auscultation Murmur: No - Abdominal Inspection: Normal Distension: No distension Bowel sounds: Normal Tenderness: Nontender Organomegaly: No organomegaly - Back Back: Normal, Nontender - Extremities General upper extremity: Normal inspection, Nontender, Normal color, Normal ROM , Normal temperature General lower extremity: Normal inspection, Nontender, Normal color, Normal ROM , Normal temperature, Normal weight bearing. No: Jose's sign - Neurological Neuro grossly intact: Yes Cognition: Normal Orientation: AAOx4 Paula Coma Scale Eye Opening: Spontaneous Paula Coma Scale Verbal: Oriented [place] Coma Scale Motor: Obeys Commands [place] Coma Scale Total: 15 Speech: Normal Motor strength normal: LUE, RUE, LLE, RLE Sensory: Normal - Psychological Associated symptoms: Normal affect, Normal mood - Skin Skin Temperature: Warm Skin Moisture: Dry Skin Color: Normal Skin irregularity: Rash Location of irregularity: Face - Around both eyes and to the right cheek, Extremities Character of irregularity: Maculopapular Irregularity with: Tenderness Course - Re-evaluation Re-evalutation: 06/20/17 12:56 Patient states that she had a similar reaction in April and she thought it was just from crying a lot but she realizes that she had used a mascara at that time. She used her mascara again 3 days ago and she has had the same reaction again. She does have some blurriness to the right eye with a severe rash around both eyes with itching and burning. - Vital Signs Vital signs: Temp Pulse Resp BP Pulse Ox 97.5 F 59 L 18 102/60 98 06/20/17 12:05 06/20/17 12:05 06/20/17 12:05 06/20/17 12:05 06/20/17 12:05 Discharge - Discharge Clinical Impression: Allergic dermatitis Condition: Stable Disposition: HOME, SELF-CARE Additional Instructions: Allergic Contact Dermatitis You have a local allergic reaction, called contact dermatitis. This an allergy to something in contact with your skin. Poison everette, jewelry, soaps, perfumes, and chemicals are common causes. Typically, an itchy rash develops a few days after the exposure. If the reaction is severe, blisters may develop. Two to three weeks may be required for healing. Generally, treatment consists of: (1) a thorough washing with soap to remove the offending substance, (2) application of a cortisone cream, and (3) antihistamines for itching. If the reaction is particularly severe, further measures may be required. These can include soaking in epsom salts or Sanjuana's solution, and oral cortisone medications. Call the doctor if the rash worsens despite treatment, or if signs of infection occur such as spreading redness, red streaks, swollen glands, swelling , or fever. STEROID MEDICATION: You have been given a medicine of the cortisone/steroid class. This medication is used to control inflammation or allergy. It is usually only given for a short period of time, until the acute process subsides. There are usually no side effects from short-term use of cortisone-like medications. Some persons feel an increased sense of well-being and are not sleepy at bedtime. Long-term use of cortisone medications is best avoided, unless required for a severe condition. If your condition does not remit, or relapses after the course of corticosteroid medication, you should consult your physician. ACID-SUPPRESSING MEDICATION: You have a prescription for medicine which reduces the stomach's secretion of acid. Examples include Zantac, Tagament, and Pepcid. These drugs are often used to allow healing of ulcers or esophagitis. They may be needed to prevent recurrence of ulcers in some patients, or to prevent damage from acid reflux in the esophagus. Take all medication as prescribed, even after the pain is gone. Regular antacids may be added as needed if you have symptoms while taking this medicine. These medications sometimes are prescribed for allergic reactions because they have anti-histaminic effects and relieve the rash and itching of the reaction. There are usually no side effects from this medication. But, in rare cases and particularly in the elderly, serious problems can occur. Contact your doctor if there is fever, rash, hallucinations, confusion, or unusual bruising. Contact your doctor at once if you develop lightheadedness, black or bloody stool, or bloody vomitus. ANTIHISTAMINES: An antihistamine has been given and/or prescribed to control your symptoms. Antihistamines are used for many reasons, including itching, watering eyes, runny nose, allergic swelling, hives, and insect stings. Antihistamines may cause drowsiness, especially with the first dose. Do not operate machinery or drive while under the effects of the medication. Other common side effects include dry mouth and eyes. In older persons, antihistamines can occasionally cause urinary retention, constipation, and trouble focusing the eyes. Do not combine the medication with alcohol, or with any other medication without talking to your doctor. USE OF DIPHENHYDRAMINE: The use of diphenhydramine (Benadryl) has been recommended to control allergic symptoms. The 25 mg strength is available over- the-counter, as well as the elixir. This antihistamine is used for many symptoms. It's useful for itching, watering eyes and nose, allergic swelling, hives, and insect stings. The medication can be repeated four times daily. Age Elixir (12.5 mg/tsp) 25 mg pill 2-3 yr 1/2 tsp 4-8 yr 1 tsp 9-14 yr 2 tsp one tab adult 1-2 tabs Antihistamines may cause drowsiness, especially with the first dose. Do not operate machinery or drive while under the effects of the medication. Do not combine the medication with alcohol, or with any other medication without talking to your doctor. Use the erythromycin eye ointment every 4 hours while awake for the next 4-5 days. FOLLOW-UP CARE: If you have been referred to a physician for follow-up care, call the physician s office for an appointment as you were instructed or within the next two days. If you experience worsening or a significant change in your symptoms, notify the physician immediately or return to the Emergency Department at any time for re-evaluation. Prescriptions: Famotidine [Pepcid 20 mg Tablet] 20 mg PO BID #12 tablet Prednisone [Deltasone 20 mg Tablet] 3 tab PO DAILY 4 Days tablet Forms: Smoking Cessation Education Referrals: GERRY HAN MD [ACTIVE STAFF] - Follow up as needed
== END 2017-06-20 13:10 | disposition home or self-care (01) ==
LOC: ER 11:58
DX: L23.9 Allergic contact dermatitis, unspecified cause (principal); H57.13 Ocular pain, bilateral; F17.210 Nicotine dependence, cigarettes, uncomplicated
CPT/HCPCS: 99282; J7512

== ENCOUNTER 2018-06-18 17:56 | Emergency (ER) | payer MEDICAID ==
--- NOTE | 2018-06-18 19:29 | ER Document Report ---
ED Hip Pain/Injury - General Chief Complaint: Hip Pain Stated Complaint: L HIP PAIN Time Seen by Provider: 06/18/18 18:59 Mode of Arrival: Wheelchair Information source: Patient Notes: 28-year-old female presents to ED for complaint of left hip pain since Sunday. 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 She states she has had multiple surgeries on both hips. She states she recently had a right hip replacement but has not yet had the left hip done. She states that they are trying to revise the right hip before they do the left hip as it has continues to pop out also. TRAVEL OUTSIDE OF THE [place] IN LAST 30 DAYS: No - HPI Patient complains to provider of: Injury, Pain, Hip Occurred: Other - Sunday hip popped out and then she fell. Where: Home, Indoors Onset/Duration: Sudden, Persistent Quality of pain: Achy, Sharp Severity: Moderate Pain Level: 4 Context: Other - Left hip popped out and this caused her to fall landing on her hip Symptoms prior to fall: None Symptoms since fall: Other - Left hip pain Skin Color: Normal Rotation of extremity: None Pain with palpation of the pelvis: Yes - To the left iliac crest Associated Symptoms: None - Related Data Allergies/Adverse Reactions: strawberry [[place]] Allergy (Severe, Verified 06/20/17 12:06) Anaphylaxis levonorgestrel [From Norplant System] Allergy (Verified 06/20/17 12:06) Hives Sulfa (Sulfonamide Antibiotics) Allergy (Verified 06/20/17 12:06) tramadol Allergy (Verified 06/20/17 12:06) Past Medical History - General Information source: Patient - Social History Smoking Status: Current Every Day Smoker Cigarette use (# per day): Yes - Half pack Chew tobacco use (# tins/day): No Smoking Education Provided: Yes - 4 min Frequency of alcohol use: None Drug Abuse: None Lives with: Family Family History: Reviewed & Not Pertinent, Other - adopted Patient has suicidal ideation: No Patient has homicidal ideation: No - Past Medical History Cardiac Medical History: Reports: None Pulmonary Medical History: Reports: None Denies: Hx Asthma EENT Medical History: Reports: None Neurological Medical History: Reports: None Endocrine Medical History: Reports: Hx Hypothyroidism Renal/ Medical History: Reports: None Malignancy Medical History: Reports: None GI Medical History: Reports: None Musculoskeletal Medical History: Reports Hx Arthritis - bilateral hips, Reports Hx Musculoskeletal Deformity - Hip dysplasia at , Reports Hx Musculoskeletal Trauma - Fractured right femur Skin Medical History: Reports None Psychiatric Medical History: Reports: Hx Anxiety Traumatic Medical History: Reports: Hx Fractures, Hx Spine Fracture Infectious Medical History: Reports: None Past Surgical History: Reports: Hx Orthopedic Surgery - bilat hip dysplasia, right femur fx 5 surgeries, right 4 surgeries on left, Other - Total hip replacement on the right - Immunizations Immunizations up to date: Yes Hx Diphtheria, Pertussis, Tetanus Vaccination: Yes - given today Hx Pneumococcal Vaccination: 05/10/13 Review of Systems - Review of Systems Constitutional: No symptoms reported EENT: No symptoms reported Cardiovascular: No symptoms reported Respiratory: No symptoms reported Gastrointestinal: No symptoms reported Genitourinary: No symptoms reported Female Genitourinary: No symptoms reported Musculoskeletal: Other - Left hip pain bruising swelling Skin: No symptoms reported Hematologic/Lymphatic: No symptoms reported Neurological/Psychological: No symptoms reported -: Yes All other systems reviewed and negative Physical Exam - Vital signs Vitals: Temp Pulse Resp BP Pulse Ox 98.1 F 63 16 100/54 L 100 06/18/18 18:33 06/18/18 18:33 06/18/18 18:33 06/18/18 18:33 06/18/18 18:33 Interpretation: Normal - General General appearance: Appears well, Alert - HEENT Head: Normocephalic, Atraumatic Eyes: Normal Pupils: PERRL - Respiratory Respiratory status: No respiratory distress Chest status: Nontender Breath sounds: Normal Chest palpation: Normal - Cardiovascular Rhythm: Regular Heart sounds: Normal auscultation Murmur: No - Abdominal Inspection: Normal Distension: No distension Bowel sounds: Normal Tenderness: Nontender Organomegaly: No organomegaly - Back Back: Normal, Nontender - Extremities General upper extremity: Normal inspection, Nontender, Normal color, Normal ROM , Normal temperature General lower extremity: Normal temperature, Normal weight bearing. No: Jose' s sign Hip: Tender, Ecchymosis, Pain with ROM, Unable to bear weight. No: Abrasion, Deformity, Dislocation, Instability, Laceration Thigh: Tender - Neurological Neuro grossly intact: Yes Cognition: Normal Orientation: AAOx4 [place] Coma Scale Eye Opening: Spontaneous Paula Coma Scale Verbal: Oriented [place] Coma Scale Motor: Obeys Commands [place] Coma Scale Total: 15 Speech: Normal Motor strength normal: LUE, RUE, LLE, RLE Sensory: Normal - Psychological Associated symptoms: Normal affect, Normal mood - Skin Skin Temperature: Warm Skin Moisture: Dry Skin Color: Normal Course - Re-evaluation Re-evalutation: 06/18/18 21:09 Discussed x-ray with patient and with Dr. Garces. Dr. Randolph says there is nothing we can really do as long as she is walking we need to discharge her as this is a chronic problem. Patient was offered a prescription for 6 Percocet but she stated she would rather have something that she can take home with her tonight I told her that it would be 6 hydrocodone instead of oxycodone. She states she would rather the take-home package. Patient was treated with crutches due to the pain in her hip. She states she is walked on crutches before but she does not have any at home. Patient was discharged home with instructions to follow- up with orthopedics as soon as possible. Patient verbalized understanding and agreement with treatment plan. - Vital Signs Vital signs: Temp Pulse Resp BP Pulse Ox 98.6 F 59 L 19 96/54 L 100 06/18/18 20:07 06/18/18 20:07 06/18/18 20:07 06/18/18 20:07 06/18/18 20:07 - Diagnostic Test Radiology reviewed: Image reviewed, Reports reviewed Discharge - Discharge Clinical Impression: Fall Qualifiers: Encounter type: initial encounter Qualified Code(s): W19.XXXA - Unspecified fall, initial encounter Left hip subluxation Qualifiers: Encounter type: initial encounter Qualified Code(s): S73.002A - Unspecified subluxation of left hip, initial encounter Condition: Stable Disposition: HOME, SELF-CARE Instructions: Family Physicians / Practices Additional Instructions: Your left hip x-ray shows mild subluxation of the left hip. You have such a narrow hip socket that this is not unusual in your circumstance. You are able to walk at this time. It it will cause some pain. Each time you all you will stretch more of the tendons and ligaments. It is very important that you follow -up with orthopedic as soon as possible. USE OF [id number] IBUPROFEN: Ibuprofen (Advil, Nuprin, Medipren, Motrin IB) is a medication for fever and pain control. In addition, it has anti- inflammatory effects which may be beneficial, especially in the treatment of injuries. It's best to take ibuprofen with food. Persons with ulcer disease or allergy to aspirin should notify their physician of this before taking ibuprofen. Ibuprofen can be given every four to six hours, for a total of four doses daily. Age Pain or fever dose Antiinflammatory dose 6-8 yr 200 mg (1 tab) 200 mg (1 tab) 9-11 yr 200 mg (1 tab) 200-400 mg (1-2 tab) 11-14 yr 200-400 mg (1-2 tab) 400 mg (2 tab) 15-adult 400 mg (2 tab) 600 mg (3 tab) ORAL NARCOTIC MEDICATION: You have been given a ToonTime dispense pack for pain control. This medication is a narcotic. It's best taken with food, as nausea can result if taken on an empty stomach. Don't operate machinery or drive within six hours of taking this medication. Do not combine this medicine with alcohol, or with any medication which can cause sedation (such as cold tablets or sleeping pills) unless you get permission from the physician. Narcotics tend to cause constipation. If possible, drink plenty of fluids and eat a diet high in fiber and fruits. Please be aware that prescription narcotics also have the potential for abuse. People become addicted to these medications because of the general sense of wellbeing that they induce. This feeling along with a significant reduction in tension, anxiety, and aggression provides a stimulating seductive quality to these drugs. Once your pain is under control, we encourage you to discard your unused narcotics. USE OF CRUTCHES: The doctor has recommended that you not bear weight at this time. You will need to use crutches. Adjust the crutches so the tops come to about two inches under the armpit while you are standing upright. Use your hands -- not your armpits -- to support your weight. To get into a chair, support yourself with one crutch on the injured side. Hold the chair with the other hand, then lower yourself while putting all your weight on the good leg. Going up stairs is `good leg up, step up, then bring up crutches and bad leg.' Down stairs is `bad leg and crutches down, then bring good leg down.' If you develop numbness or swelling in an arm or hand, you are using the crutches incorrectly. Return if you are having any problems with the crutches. FOLLOW-UP CARE: If you have been referred to a physician for follow-up care, call the physician s office for an appointment as you were instructed or within the next two days. If you experience worsening or a significant change in your symptoms, notify the physician immediately or return to the Emergency Department at any time for re-evaluation. Forms: Smoking Cessation Education Referrals: THIAGO JACKSON MD [ACTIVE STAFF] - Follow up as needed
[2018-06-18] MEDS ORDERED: OXYCODONE-ACETAMINOPHEN 5-325 MG TABLET PO ONE (19:44)
[2018-06-18 20:09] VITALS: BP 96/54
--- NOTE | 2018-06-18 20:30 | RADIOLOGY REPORT (SQ) ---
EXAM DESCRIPTION: HIP LEFT AP/LATERAL COMPLETED DATE/TIME: 06/18/2018 7:52 pm REASON FOR STUDY: hip popped out causing her to fall COMPARISON: None. NUMBER OF VIEWS: Two views. TECHNIQUE: AP pelvis and additional frog-leg view of the left hip. LIMITATIONS: None. FINDINGS: MINERALIZATION: Normal. LEFT HIP: Dysplastic. Very shallow acetabulum. Partial subluxation. Mild deformity of the femoral head. RIGHT HIP: Right hip arthroplasty in good position. PUBIS AND ISCHIUM: No fracture. PELVIS: No fracture. SACRUM: No fracture or dislocation. No worrisome bone lesions. LOWER LUMBAR SPINE: No fracture or dislocation. No worrisome bone lesions. No significant disc disea se. SOFT TISSUES: No findings. OTHER: No other significant finding. IMPRESSION: Left hip dysplasia with mild subluxation. No acute abnormality. TECHNICAL DOCUMENTATION: JOB ID: [id number] [employer]- All Rights Reserved Reading location - IP/workstation name: [email or web address]
[2018-06-18] MEDS ORDERED: HYDROCODONE/ACETAMINOPHEN 5-325 MG (6 TAB/ER DISP) PO PRN (21:03)
== END 2018-06-18 21:32 | disposition home or self-care (01) ==
LOC: ER 17:56
DX: S73.002A Unspecified subluxation of left hip, initial encounter (principal); W19.XXXA Unspecified fall, initial encounter; F17.210 Nicotine dependence, cigarettes, uncomplicated
CPT/HCPCS: 99283; 99406

== ENCOUNTER 2018-12-02 21:46 | Emergency (ER) | payer MEDICAID ==
[2018-12-02 22:37] VITALS: BP 110/67
--- NOTE | 2018-12-02 23:42 | RADIOLOGY REPORT (SQ) ---
EXAM DESCRIPTION: XR HIP 2 OR MORE VIEWS COMPLETED DATE/TME: 12/02/2018 23:08 CLINICAL HISTORY: 28 years, Female, fall off ladder; hip pain COMPARISON: 06/22/2018 pelvis and left hip NUMBER OF VIEWS: 2 TECHNIQUE: AP and frog-leg views of the pelvis/left hip LIMITATIONS: None. FINDINGS: Post surgical changes of the right hip. Deformity of the left femoral head with flattening of the left bony acetabulum with what is likely chronic subluxation of the left hip. Similar findings were present previously, although the degree of femoral head flattening has worsened on today's exam. No radiographic evidence for acute fracture or dislocation. IMPRESSION: Interval progression in deformity of the left hip, as above consistent with chronic subluxation and femoral head flattening. Shallow/flattened appearance to the bony acetabulum. copyright 2010 [facility] [employer]- All Rights Reserved
--- NOTE | 2018-12-03 00:16 | ER Document Report ---
HPI - HPI Time Seen by Provider: 12/02/18 23:07 Pain Level: 4 Context: Patient is a 28-year-old female who presents the emergency department with a chief complaint of left hip pain. 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 Her pain in solely in her hip, no radiation. She notices some swelling. She has a history of hip dysplasia and has had multiple surgeries for her hips, including a replacement on the right. She is scheduled to have surgery next Sunday to have a left hip replacement. She states that she feels her hip is not quite in place but feels it will pop back into place soon. She states she has been taking Motrin and Tylenol for the pain, but it is not getting any better. She does have Percocet 10 mg ordered for her but she, "flushes them down the toilet, because I do not want to get addicted to pain medication." - ROS Systems Reviewed and Negative: Yes All other systems reviewed and negative - CONSTITUTIONAL Constitutional: DENIES: Fever, Chills - NEURO Neurology: DENIES: Headache - CARDIOVASCULAR Cardiovascular: DENIES: Chest pain - RESPIRATORY Respiratory: DENIES: Trouble Breathing - GASTROINTESTINAL Gastrointestinal: DENIES: Abdominal Pain - REPRODUCTIVE Reproductive: DENIES: : - MUSCULOSKELETAL Musculoskeletal: REPORTS: Extremity pain - DERM Skin Color: Normal Skin Problems: None Past Medical History - General Information source: Patient - Social History Smoking Status: Never Smoker Family History: Reviewed & Not Pertinent, Other - adopted Patient has suicidal ideation: No Patient has homicidal ideation: No Pulmonary Medical History: Denies: Hx Asthma Endocrine Medical History: Reports: Hx Hypothyroidism Renal/ Medical History: Denies: Hx Peritoneal Dialysis Musculoskeletal Medical History: Reports Hx Arthritis - bilateral hips, Reports Hx Musculoskeletal Deformity - Hip dysplasia at , Reports Hx Musculoskeletal Trauma - Fractured right femur Psychiatric Medical History: Reports: Hx Anxiety Traumatic Medical History: Reports: Hx Fractures Past Surgical History: Reports: Hx Orthopedic Surgery - bilat hip dysplasia, right femur fx 5 surgeries, right 4 surgeries on left, Other - Total hip replacement on the right - Immunizations Immunizations up to date: Yes Hx Pneumococcal Vaccination: 05/10/13 Vertical Provider Document - CONSTITUTIONAL Agree With Documented VS: Yes Exam Limitations: No Limitations General Appearance: No Apparent Distress - INFECTION CONTROL TRAVEL OUTSIDE OF THE [place] IN LAST 30 DAYS: No - HEENT HEENT: Atraumatic, Normocephalic - NECK Neck: Normal Inspection - RESPIRATORY Respiratory: Breath Sounds Normal, No Respiratory Distress - CARDIOVASCULAR Cardiovascular: Regular Rate, Regular Rhythm Pulses: Normal: Radial, Posterior tibial, Dorsalis pedis - GI/ABDOMEN Gastrointestinal: Abdomen Soft, Abdomen Non-Tender - MUSCULOSKELETAL/EXTREMETIES Musculoskeletal/Extremeties: negative: FROM - Left Lower extremity decreased range of motion, but not any different than normal per patient - NEURO Level of Consciousness: Awake, Alert, Appropriate Motor/Sensory: No Motor Deficit, No Sensory Deficit - DERM Integumentary: Warm, Dry Course - Re-evaluation Re-evalutation: 12/03/18 00:16 Patient's left hip x-ray shows no acute fracture or dislocation at this time. She does have chronic changes noted on her x-ray. I have informed her that I can treat her pain here in the emergency department with a dose of morphine and she will be sent home with Motrin and Tylenol at home to help with her pain. She is in agreement with this plan. She will wait for her to arrive. I have a very low suspicion for a hip dislocation and compartment syndrome. Verbal discharge instructions were given to the patient. They verbalized understanding. They are stable for discharge. 12/03/18 00:40 Patient reported to the nurse that her right is unable to pick her up, therefore I ordered her some Toradol. She is refusing the Toradol and asking to have medication to go home with. I told the nurse that I will not give her narcotic pain medication, because she last had her prescription filled on November 27 and had 40 pills of oxycodone ordered. She has had oxycodone 15 and 10 mg tablets ordered for her 5 times in the past year. Her overdose risk score is 590. The patient stated that she was going to check back out and check right back in. Dr. Pardo is being made aware of this situation. 12/03/18 01:00 Dr. Pardo agrees that the patient should not be sent home with narcotic pain medication. He spoke with her in regards to this issue. The patient is now able to find a ride. She will receive her morphine when her ride is at bedside. She is still stable for discharge. - Vital Signs Vital signs: Temp Pulse Resp BP Pulse Ox 99.0 F 51 L 14 110/67 100 12/02/18 22:37 12/02/18 22:37 12/02/18 22:37 12/02/18 22:37 12/02/18 22:37 Discharge - Discharge Clinical Impression: Chronic left hip pain, Drug-seeking behavior Fall Qualifiers: Encounter type: initial encounter Qualified Code(s): W19.XXXA - Unspecified fall, initial encounter Condition: Stable Disposition: HOME, SELF-CARE Additional Instructions: You were seen today in the emergency department for left hip pain after a fall. The x-ray shows drawn normal hip dysplasia imaging. You can take ibuprofen 600 mg and acetaminophen 1000 mg every 6 hours as needed for your pain. Please make sure you take these medications, as they will help with inflammation and pain. If you are unable to walk, your hip pops out of place again, or have any symptoms that are worrisome to you, please return to the emergency department. Forms: Return to Work
[2018-12-03] MEDS ORDERED: KETOROLAC TROMETHAMINE 60 MG/2 ML SDV IM ONE (00:21)
[2018-12-03] MEDS ORDERED: MORPHINE SULFATE 10 MG/ML INJ IM ONE (01:55)
== END 2018-12-03 02:03 | disposition home or self-care (01) ==
LOC: ER 21:46
DX: Z04.3 Encounter for examination and observation following other accident (principal); M25.552 Pain in left hip; G89.29 Other chronic pain; Z76.5 Malingerer [conscious simulation]; Z96.641 Presence of right artificial hip joint
CPT/HCPCS: 99283; 96372; 73502; J2270